=== PATIENT | male | born 1990 | race Caucasian/White ===

== ENCOUNTER 2023-12-16 13:10 | Emergency (ER) | payer OTHER, SELFPAY ==
[2023-12-16 13:16] VITALS: BP 149/90; PULSE 110; TEMP 36.7; O2SAT 96; BMI 32.3
--- NOTE | 2023-12-16 13:37 | XR_ITS ---
The [address] [address] Patient Name: ALMAS LINDA MRN: [id number] date: 1990 Sex: M Assigned Patient Location: ER Current Patient Location: ED.MAIN Accession/Order Number: [id number] Exam Date: 12/16/2023 13:44 Report Date: 12/16/2023 14:13 At the request of: SHALONDA RICHARDSON Procedure: XR ankle LT min 3V EXAM: XR ankle LT min 3V HISTORY: EDEMA COMPARISON: None. TECHNIQUE: 3 views left ankle FINDINGS: Corticated ossicle subjacent to the lateral malleolus relating to remote injury. No acute fracture or dislocation. Ankle mortise is congruent. Mild soft tissue swelling about the lateral malleolus. No radiodense foreign body, or appreciable soft tissue gas. XR/XR ankle LT min 3V IMPRESSION: No acute osseous abnormality. Electronically authenticated by: MEREDITH FLORES Date: 12/16/2023 14:13
--- NOTE | 2023-12-16 13:48 | ED_ITS ---
HPI HPI - Extremity Injury (Lower) General Chief Complaint: Extremity Injury, Lower Stated Complaint: LEFT LOWER EXTREMITY SWELLING, PAIN Time Seen by Provider: 12/16/23 13:39 Source: patient and family Mode of arrival: walk-in Limitations: no limitations History of Present Illness HPI Narrative: This patient is here with pain and swelling over his left ankle mortise. He does a lot of walking at work but he did not have any event of turning, rolling or twisting his ankle that he is aware of. He has had high ankle sprains on his right side previously but he says this actually is more painful on his left side. Pain is over both the medial and lateral ankle mortise. Does not have any pain in the calf or the knee or his other joints. Denies any previous history of gout. But again he has a lot of swelling pain with no known injury at all. Related Data Home Medications ?Medication ?Instructions ?Recorded ?Confirmed No Known Home Medications 12/16/23 12/16/23 Allergies Allergy/AdvReac Type Severity Reaction Status Date / Time Penicillins AdvReac Mild Verified 12/16/23 13:19 Opioid HPI Opioid Management Most Recent Pain and Opioid Data: Last ED Pain Assessment 12/16/23 13:24 Exam Narrative Exam Narrative: Patient is awake alert appears to be uncomfortable he is using crutches because it is uncomfortable to walk on. The left knee appears normal the gastrocnemius and Achilles area are normal. But he has some mild warmth over the medial and lateral aspect of the ankle mort ise with tenderness to palpation over the ligamentous structures. The dorsum of the foot is asymptomatic. Neurovascular examination of the foot is normal with good pulses and no discoloration. The rest of the skin and integument are normal. Constitutional Vital Signs, click to edit/add: Last Vital Signs Temp 98.0 F 12/16/23 13:16 Pulse 110 H 12/16/23 13:16 Resp 18 12/16/23 13:16 BP 149/90 H 12/16/23 13:16 Pulse Ox 96 12/16/23 13:16 O2 Del Method Room Air 12/16/23 13:16 Course Vital Signs Vital signs: Vital Signs Temperature 98.0 F 12/16/23 13:16 Pulse Rate 110 H 12/16/23 13:16 Respiratory Rate 18 12/16/23 13:16 Blood Pressure 149/90 H 12/16/23 13:16 Pulse Oximetry 96 12/16/23 13:16 Oxygen Delivery Method Room Air 12/16/23 13:16 Temperature 98.0 F 12/16/23 13:16 Pulse Rate 110 H 12/16/23 13:16 Respiratory Rate 18 12/16/23 13:16 Blood Pressure 149/90 H 12/16/23 13:16 Pulse Oximetry 96 12/16/23 13:16 Oxygen Delivery Method Room Air 12/16/23 13:16 MDM - Extremity Injury (Lower) MDM Narrative Medical decision making narrative: In the absence of an injury this certainly could be a gout attack. We will check a uric acid level. He does not have a primary care doctor. If this level is elevated he is going to have to get appropriate medication. At this time recommendations will include an ankle immobilizer and high-dose anti- inflammatories. If the uric acid level is elevated we may actually start him on prednisone. Discharge Plan Discharge Stand Alone Forms: Portal Instructions Chief Complaint: Extremity Injury, Lower Clinical Impression: Gout Patient Disposition: Home, Self-Care Time of Disposition Decision: 14:47 Prescriptions / Home Meds: No Action No Known Home Medications Print Language: Moldovan Additional Instructions: Is on for 9 days. Follow-up with primary care doctor to consider further therapy Referrals: Physician,Non-Staff, MD [Primary Care Provider] - 1 week
[2023-12-16 14:19] LABS: Uric Acid 8.3 mg/dL (3.5-7.2)
[2023-12-16] MEDS: DEXAMETHASONE 4 MG TABLET 10 MG PO (14:53)
[2023-12-16 15:03] VITALS: BP 129/84; PULSE 90; O2SAT 98
== END 2023-12-16 15:04 | disposition home or self-care (01) ==
PROVIDERS: Emergency Provider Emergency Medicine Emergency Medical Services
DX: M10.9 Gout, unspecified (principal)
CPT/HCPCS: 36415; 73610; 84550; 99284